=== PATIENT | male | born 1960 | race Caucasian/White ===

== ENCOUNTER 2024-05-19 09:30 | Emergency (ER) | payer MEDICARE, SELFPAY ==
--- NOTE | ~2024-05-19 | CT_ITS ---
EXAMINATION: CT chest abdomen pelvis w con DATE: 05/19/2024 10:25 INDICATION: Left chest wall pain. Abdominal pain. TECHNIQUE: Computed tomography (CT) of the chest, abdomen, and pelvis was performed with 100 mL Omnip aque 350 intravenous contrast. Automated exposure control and iterative reconstruction technique were employed. The dose-length product was 533.03 mGy-cm. COMPARISON: CT abdomen and pelvis 11/27/2014 FINDINGS: CHEST CT: There is mild emphysema. There is mild atelectasis bilaterally. A calcified right lung nodule and radha cified right hilar and mediastinal lymph nodes are consistent with old granulomatous disease. No pleu ral effusion. The heart size is normal. There are coronary artery calcifications. No pericardial effu marcia. There is a small sliding hiatal hernia. There are acute fractures of left seventh-10th ribs. Th ere is a chronic compression fracture of T6. There are changes of posterior fusion procedure from T9 to S1 and the bilateral iliac bones. ABDOMEN/PELVIS CT: There are cysts in the kidneys measuring up to 9 mm. Calcifications in the liver and spleen are consi stent with old granulomatous disease. The pancreas and adrenal glands are normal. There are cysts in the kidneys measuring up to 3.1 cm on the right. The prostate is mildly enlarged. There are no dilate d loops of bowel. The appendix is normal. There is calcified atherosclerosis of the aorta and many of the other arteries. There are no pathologically enlarged lymph nodes. There is no free intraperitone al fluid. There is a chronic burst fracture of L1. There are changes of anterior fusion procedure fro m L3 to S1 with L4 corpectomy and interbody devices. IMPRESSION: 1. Acute fractures of left seventh-10th ribs. Reviewed, dictated and finalized at location B. [employer]
[2024-05-19 09:39] VITALS: BP 137/83; PULSE 106; RESP 16; TEMP 36.6; O2SAT 97
[2024-05-19 10:04] VITALS: BP 128/75; PULSE 109; RESP 20; O2SAT 100
[2024-05-19 10:10] LABS: Basophils Percent Auto 0.1 % (0.2-1.2); Hematocrit 41.7 % (42.0-52.0); Hemoglobin 14.3 g/dL (14.0-18.0); Immature Granulocyte Absolute 0.06 K/mm3 (0.00-0.031); Immature Granulocyte Percent A 0.4 % (0-0.5); Lymphocytes Absolute Auto 0.93 K/mm3 (0.9-3.2); Lymphocytes Percent Auto 6.1 % (18.3-44.2); Mean Corpuscular HGB Conc 34.3 g/dl (32-36); Mean Corpuscular Hemoglobin 31.6 pg (26-34); Mean Corpuscular Volume 92.3 fl (80-100); Mean Platelet Volume 9.2 fl (7.4-10.4); Monocytes Absolute Auto 0.7 K/mm3 (0.1-0.6); Monocytes Percent Auto 4.3 % (2.6-8.5); Neutrophils Absolute Auto 13.7 K/mm3 (1.3-6.7); Neutrophils Percent Auto 89.1 % (45.5-73.1); Platelet Count Result 256 k/mm3 (150-375); Red Blood Count 4.52 M/mm3 (4.6-6.20); Red Cell Distribution Width 12.9 % (11.5-14.5); White Blood Count 15.4 K/mm3 (4.5-10.0)
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
[2024-05-19 10:20] LABS: Alanine Aminotransferase 22 U/L (6-50); Albumin Level 4.6 g/dL (3.5-5.1); Alkaline Phosphatase 90 U/L (38-126); Anion Gap 12 mmol/L (4-12); Aspartate Amino Transferase 32 U/L (17-59); Bilirubin,Total 0.8 mg/dL (0.2-1.3); Blood Urea Nitrogen 7 mg/dL (9-20); Calcium 8.9 mg/dL (8.4-10.2); Carbon Dioxide 24 mmol/L (22-30); Chloride 99 mmol/L (98-107); Estimated CRCL calculation 141 ml/min; Estimated Glomerular Filt Rate > 60; Glucose 106 mg/dL (65-110); Potassium 4.9 mmol/L (3.4-5.0); Sodium 135 mmol/L (137-145)
[2024-05-19 10:23] LABS: Prothrombin Time 13.6 Seconds (11.1-14.7)
[2024-05-19 10:24] LABS: Partial Thromboplastin Time 24.8 Seconds (22.3-36.8)
[2024-05-19 10:26] LABS: Estimated CRCL calculation 113 ml/min; Estimated Glomerular Filt Rate > 60
[2024-05-19] MEDS: HYDROmorphone HCL INJ (*CRX) 1 MG/ML SYR IV PUSH (10:30)
[2024-05-19] MEDS: CYCLOBENZAPRINE HCL 10 MG TABLET PO (10:30)
[2024-05-19 11:11] VITALS: BP 131/82; PULSE 109; RESP 15; O2SAT 96
[2024-05-19 11:40] VITALS: BP 120/95; PULSE 101; RESP 16; O2SAT 97
--- NOTE | 2024-05-19 11:40 | PC.NURSE ---
Pt declined transfer to [place] due to mult rib fractures, Dr Catherine at pt bedside discussing risks and continued POC for pt. This RN also discussed transfer with pt who declines. Pt signed AMA paperwork. Pt states he has a doc appt this week w/ his PCP and verbalized understanding to f/u and seek emergency tx if indicated at any point. Pt is A&Ox4 at time of this discussion and in NAD.
--- NOTE | 2024-05-19 11:43 | PC.NURSE ---
RT at bedside teaching pt. how to use incentive spirometer. Pt. able to return demonstrate. Pt. given incentive spirometer to go home with.
== END 2024-05-19 11:46 | disposition home or self-care (01) ==
PROVIDERS: Emergency Provider Emergency Medicine; PCP Emergency Medicine
DX: S22.42XA Multiple fractures of ribs, left side, initial encounter for closed fracture (principal); J44.9 Chronic obstructive pulmonary disease, unspecified; F17.200 Nicotine dependence, unspecified, uncomplicated; W18.09XA Striking against other object with subsequent fall, initial encounter
CPT/HCPCS: 36415; 71260; 74177; 80053; 85025; 85610; 85730; 96374; 99284; A9270; J1171; Q9967

== ENCOUNTER 2025-02-11 12:32 | Outpatient (CLI) | payer MEDICARE, SELFPAY ==
--- NOTE | ~2025-02-11 | MR_ITS ---
EXAMINATION: MR elbow LT wo con DATE: 02/11/2025 13:19 INDICATION: Left elbow pain TECHNIQUE: Magnetic resonance imaging (MRI) of the left elbow was performed without intravenous contrast. Sequences included coronal, axial, and sagittal PD-weighted FS FSE and coronal, axial, and sagittal PD-weighted FSE. COMPARISON: None FINDINGS: Osseous/other: Normal alignment. Normal marrow signal with no marrow edema, fracture, osteochondral lesion or abnormal marrow replacing process. 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 Tendons: Triceps, biceps brachii and brachialis tendons are normal. Mild tendinopathy without discrete tear at the proximal common flexor tendon wad. The common extensor tendon wad is normal. Ligaments: The medial and lateral collateral ligament complexes are normal. Cubital tunnel: Cubital tunnel is unremarkable with normal signal and caliber of the ulnar nerve. Fluid: Physiologic amount of fluid the elbow joint. 2.4 x 2.2 x 1.0 cm likely subcutaneous fluid collection posterior to the olecranon consistent with olecranon bursitis. IMPRESSION: 1. Olecranon bursitis with 2.4 x 2.2 x 1.0 cm fluid-filled bursa. 2. Mild tendinopathy without tear at the medial epicondylar origin of the common flexor tendon wad. 2. 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 Reviewed, dictated and finalized at location A. IMPRESSION: 1. Olecranon bursitis with 2.4 x 2.2 x 1.0 cm fluid-filled bursa. 2. Mild tendinopathy without tear at the medial epicondylar origin of the commo n flexor tendon wad. 2. Mild osteoarthritis at the ulnotrochlear and proximal radioulnar articulatio ns.
== END 2025-02-11 12:33 | disposition home or self-care (01) ==
LOC: MICIMG 12:33
PROVIDERS: PCP Emergency Medicine; Visit Provider Orthopaedic Surgery
DX: M70.22 Olecranon bursitis, left elbow (principal); M77.02 Medial epicondylitis, left elbow; M19.022 Primary osteoarthritis, left elbow
CPT/HCPCS: 73221